=== PATIENT | female | born 2000 | race Caucasian/White ===

== ENCOUNTER 2022-12-28 14:25 | Emergency (ER) | payer BC, SELFPAY ==
[2022-12-28 14:30] VITALS: BP 128/83; PULSE 65; RESP 16; TEMP 36.4; O2SAT 100; BMI 28.8
--- NOTE | 2022-12-28 14:44 | US_ITS ---
[facility] [place] [id number] Patient Name: KESHAWN PARTIDA MRN: [facility]:[id number] date: 2000 Sex: F Assigned Patient Location: ED.MAIN Current Patient Location: Accession/Order Number: [id number] Exam Date: 12/28/2022 15:27 Report Date: 12/28/2022 16:54 At the request of: LUCRECIA MCNULTY Procedure: US OB transvaginal Ultrasound OB Early : 12/28/2022 3:27 PM EDT Clinical History:10wks , vaginal bleeding Comparison: None available . FINDINGS: There is a well-defined intrauterine gestational sac. There is decidual reaction. Within the sac there is a yolk sac and a pole.. There is subchorionic heterogeneity in the uterine fundus measuring 26 mm in maximum size. MEASUREMENTS: CRL: 32 mm AGE: 10 weeks and 1 day SOURAV: 07/25/2023 HEART RATE: 170. MATERNAL ADNEXAL REGION: Unremarkable. Cervical length is 52 mm. US/US OB transvaginal IMPRESSION: 1. Single, live intrauterine with an estimated age of 10 weeks and 1 day by this study. 2. Heterogeneity at the level of the uterine fundus probably represents subchorionic hemorrhage. Follow-up study Electronically authenticated by: ANGELIA LEVY Date: 12/28/2022 16:54
[2022-12-28 14:51] LABS: Bilirubin Urine NEGATIVE (NEGATIVE); Blood Urine LARGE (NEGATIVE); Clarity Urine CLEAR (CLEAR); Color Urine YELLOW (YELLOW); Glucose Urine UA NEGATIVE (NEGATIVE); Ketones Urine NEGATIVE (NEGATIVE); Leukocyte Esterase Urine NEGATIVE (NEGATIVE); Nitrite Urine NEGATIVE (NEGATIVE); Protein Urine NEGATIVE (NEG/TRACE); Specific Gravity Urine >=1.030 (1.005-1.025)
[2022-12-28 14:55] LABS: Urine Microscopic Indicated YES
[2022-12-28 14:59] LABS: Bacteria Urine TRACE #/HPF (NONE SEEN); Cast Seen? NONE SEEN #/LPF (NONE SEEN); Crystals Seen? None Seen #/HPF (None Seen); Mucus Urine MODERATE (NONE SEEN); Squamous Epithelial Cell Urine FEW #/LPF (NONE/RARE); Urine Culture Indicated NO; WBC Urine NONE SEEN #/HPF (NONE SEEN)
--- NOTE | 2022-12-28 14:59 | ED_ITS ---
HPI - General Chief complaint: Urogenital-Female Stated complaint: APPROX. 10 WKS -BLEEDING/CRAMPING Time Seen by Provider: 12/28/22 14:28 Source: patient Mode of arrival: walk-in History of Present Illness HPI Narrative: patient estimates she is about 10 week . She developed bright red vaginal spotting yesterday and this morning began passing brownish discharge with some clots. No fever or chills. No abdominal pain, pelvic pain or low back pain. LMP 10/15/22. SOURAV 07/24/23. Her OB is Dr Chester in [place]. Related Data Allergies Allergy/AdvReac Type Severity Reaction Status Date / Time amoxicillin Allergy Severe Verified 12/28/22 14:29 Exam Narrative Exam Narrative: Nurses notes and vital signs reviewed and patient is not hypoxic. afebrile General: Well-appearing and in no apparent distress. Skin: Warm, dry, no pallor noted. No rash. Head: Normocephalic, atraumatic. Eye: Pupils are equal, round and EOMI. No scleral icterus. Cardiovascular: Regular Rate and Rhythm without murmur, gallop or rub. Respiratory: No accessory muscle use or respiratory distress. Lungs are clear to auscultation, no wheezing, rales or rhonchi Back: No midline thoracic or lumbar vertebral tenderness. No CVA tenderness Musculoskeletal: normal ROM, no calf or popliteal tenderness, no lower extremity edema/swelling GI: Abdomen is soft, non-distended. Normal bowel sounds. No masses appreciated. No tenderness to palpation. No rebound, guarding, or rigidity noted. Neurological: A&O x4. No cranial nerve dysfunction observed. No truncal ataxia. Moves all extremities. Sensation intact. Psychiatric: Cooperative and interactive. Normal mood and affect. Constitutional Vital Signs, click to edit/add: Last Vital Signs Temp 97.5 F L 12/28/22 14:30 Pulse 65 12/28/22 14:30 Resp 16 12/28/22 14:30 BP 128/83 12/28/22 14:30 Pulse Ox 100 12/28/22 14:30 O2 Del Method Room Air 12/28/22 14:30 Course Vital Signs Vital signs: Vital Signs Temperature 97.5 F L 12/28/22 14:30 Pulse Rate 65 12/28/22 14:30 Respiratory Rate 16 12/28/22 14:30 Blood Pressure 128/83 12/28/22 14:30 Pulse Oximetry 100 12/28/22 14:30 Oxygen Delivery Method Room Air 12/28/22 14:30 Temperature 97.5 F L 12/28/22 14:30 Pulse Rate 65 12/28/22 14:30 Respiratory Rate 16 12/28/22 14:30 Blood Pressure 128/83 12/28/22 14:30 Pulse Oximetry 100 12/28/22 14:30 Oxygen Delivery Method Room Air 12/28/22 14:30 MDM - OB/Uterine Contractions MDM Narrative Medical decision making narrative: blood and urine sent for testing. biomedical electronics technician was called in from home in order to perform pelvic ultrasound. Patient Rh positive. Quant >12k. UA negative for UTI. CBC and CMP unremarkable. US shows Live IUP, HR 171, residual blood on the left Patient informed of results and discharged home with recommendation to see her OB for close follow up. Discussed pelvic rest and reasons to return to the ED. Lab Data Attestation: I reviewed the patient's lab results. Labs: Lab Results 12/28/22 12/28/22 Range/Units 14:30 14:55 WBC 9.6 (4.0-11.0) 10^3/uL RBC 4.08 L (4.20-5.40) 10^6/uL Hgb 13.2 (12.0-16.0) g/dL Hct 37.7 (36.0-48.0) % MCV 92.4 (81.0-99.0) fL MCH 32.4 (26.7-34.0) pg MCHC 35.0 (29.9-35.2) g/dL RDW 15.2 H (11.0-15.0) % Plt Count 248 (150-450) 10^3/uL MPV 9.2 L (9.5-13.5) fL Neut % (Auto) 81.1 H (43.0-75.0) % Lymph % (Auto) 13.3 L (20.5-60.0) % [place] % (Auto) 4.8 (1.7-12.0) % Eos % (Auto) 0.2 L (0.9-7.0) % Baso % (Auto) 0.3 (0.2-2.0) % Neut # (Auto) 7.8 H (1.4-6.5) 10^3/uL Lymph # (Auto) 1.3 (1.2-3.8) 10^3/uL [place] # (Auto) 0.5 (0.3-0.8) 10^3/uL Eos # (Auto) 0.0 (0.0-0.7) 10^3/uL Baso # (Auto) 0.0 (0.0-0.1) 10^3/uL Abs Immat Gran (auto) 0.03 (0.00-0.03) 10^3/uL Imm/Tot Granulo (auto) 0.3 (0.0-0.5) % Sodium 137 (136-145) mmol/L Potassium 3.5 (3.5-5.1) mmol/L Chloride 102 (98-107) mmol/L Carbon Dioxide 23.4 (21.0-32.0) mmol/L Anion Gap 15.1 BUN 7.0 (7.0-18.0) mg/dL Creatinine 0.63 (0.55-1.02) mg/dL Est GFR ( Amer) >60 (>=60) Est GFR (Non-Af Amer) >60 (>=60) BUN/Creatinine Ratio 11.1 Glucose 82 (74-106) mg/dL Calcium 8.8 (8.5-10.1) mg/dL Total Bilirubin 0.7 (0.2-1.0) mg/dL AST 13 L (15-37) U/L ALT 15 (14-59) U/L Alkaline Phosphatase 41 L (46-116) U/L Total Protein 7.7 (6.4-8.2) g/dL Albumin 4.1 (3.4-5.0) g/dL Globulin 3.6 g/dL Albumin/Globulin Ratio 1.1 HCG, Quant 233768 mIU/mL Urine Color Yellow (YELLOW) Urine Clarity Clear (CLEAR) Urine pH 6.0 (5.0-9.0) Ur Specific [place] >=1.030 A (1.005-1.025) Urine Protein Negative (NEG/TRACE) mg/dL Urine Glucose (UA) Negative (NEGATIVE) mg/dL Urine Ketones Negative (NEGATIVE) mg/dL Urine Occult Blood Large A (NEGATIVE) Urine Nitrite Negative (NEGATIVE) Urine Bilirubin Negative (NEGATIVE) Urine Urobilinogen 1.0 (0.2-1.0) EU/dL Ur Leukocyte Esterase Negative (NEGATIVE) Urine RBC 2-5 A (0-2) #/HPF Urine WBC None seen (NONE SEEN) #/HPF Ur Squamous Epith Cells Few A (NONE/RARE) #/LPF Urine Crystals None seen (None Seen) #/HPF Urine Bacteria Trace A (NONE SEEN) #/HPF Urine Casts None seen (NONE SEEN) #/LPF Urine Mucus Moderate A (NONE SEEN) Ur Culture Indicated? No Blood Type AB Positive Discharge Plan Discharge Chief Complaint: Urogenital-Female Clinical Impression: Bleeding in early Patient Disposition: Home, Self-Care Time of Disposition Decision: 15:59 Instructions: Threatened Miscarriage (ED), at 7 to 10 Weeks (ED), Pelvic Rest (ED) Stand Alone Forms: Portal Instructions Referrals: Physician,Non-Staff, MD [Primary Care Provider] - 1 week
[2022-12-28 15:00] LABS: Basophils Percent Auto 0.3 % (0.2-2.0); Eosinophils Percent Auto 0.2 % (0.9-7.0); Hematocrit 37.7 % (36.0-48.0); Hemoglobin 13.2 g/dL (12.0-16.0); Immature Granulocytes Abs Auto 0.03 10^3/uL (0.00-0.03); Immature Granulocytes Pct Auto 0.3 % (0.0-0.5); Lymphocytes Absolute Auto 1.3 10^3/uL (1.2-3.8); Lymphocytes Percent Auto 13.3 % (20.5-60.0); Mean Corpuscular Hemoglobin 32.4 pg (26.7-34.0); Mean Corpuscular Volume 92.4 fL (81.0-99.0); Mean Platelet Volume 9.2 fL (9.5-13.5); Monocytes Absolute Auto 0.5 10^3/uL (0.3-0.8); Monocytes Percent Auto 4.8 % (1.7-12.0); Neutrophils Absolute Auto 7.8 10^3/uL (1.4-6.5); Neutrophils Percent Auto 81.1 % (43.0-75.0); Platelet Count 248 10^3/uL (150-450); Red Blood Count 4.08 10^6/uL (4.20-5.40); Red Cell Distribution Width 15.2 % (11.0-15.0); White Blood Count 9.6 10^3/uL (4.0-11.0)
[2022-12-28 15:16] LABS: Alanine Aminotransferase 15 U/L (14-59); Albumin Globulin Ratio 1.1; Albumin Level 4.1 g/dL (3.4-5.0); Alkaline Phosphatase 41 U/L (46-116); Anion Gap 15.1; Aspartate Amino Transferase 13 U/L (15-37); BUN Creatinine Ratio 11.1; Bilirubin Total 0.7 mg/dL (0.2-1.0); Calcium 8.8 mg/dL (8.5-10.1); Carbon Dioxide 23.4 mmol/L (21.0-32.0); Chloride 102 mmol/L (98-107); Estimated GFR (African America >60 (>=60); Estimated GFR (Non-African Ame >60 (>=60); Globulin 3.6 g/dL; Glucose 82 mg/dL (74-106); Potassium 3.5 mmol/L (3.5-5.1); Sodium 137 mmol/L (136-145); Total Protein 7.7 g/dL (6.4-8.2)
== END 2022-12-28 16:07 | disposition home or self-care (01) ==
PROVIDERS: Emergency Provider Emergency Medicine
DX: O20.9 Hemorrhage in early pregnancy, unspecified (principal); Z3A.10 10 weeks gestation of pregnancy
CPT/HCPCS: 36415; 76817; 80053; 81001; 84702; 85025; 86900; 86901; 99284